=== PATIENT | male | born 1995 | race African-American/Black ===

== ENCOUNTER 2019-08-24 07:20 | Emergency (ER) | payer OTHER ==
[~2019-08-24] VITALS: Ht 185.4 cm; Wt 67.1 kg
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
[2019-08-24 07:38] VITALS: BP 123/80
--- NOTE | 2019-08-24 07:55 | NUR ---
Note jannet in EDM - 08/24/19 at 0816 by JHERMANGregoria ED Nurse Note: Pt taken to XR.
--- NOTE | 2019-08-24 07:55 | NUR ---
ED Nurse Note: Pt taken to XR.
[2019-08-24] MEDS ORDERED: Ketorolac 60mg Inj IM ONE (08:00)
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
[2019-08-24] MEDS ORDERED: IBUPROFEN600 M1 ORAL (09:12)
[2019-08-24] MEDS ORDERED: CYCLOBENZAPRINE10 MG ORAL (09:12)
[2019-08-24 10:00] VITALS: BP 128/76
--- NOTE | 2019-08-24 10:00 | NUR ---
ER DISCHARGE NOTE: Patient is cleared to be discharged per ERMD, pt is aox4, on room air, with stable vital signs. pt was given dc and prescription instructions, pt was able to verbalize understanding, pt id band removed. pt is able to ambulate with steady gait. pt took all belongings.
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
== END 2019-08-24 10:00 | disposition home or self-care (01) ==
LOC: EMR 07:50
DX: S13.4XXA Sprain of ligaments of cervical spine, initial encounter (principal); S39.012A Strain of muscle, fascia and tendon of lower back, initial encounter; V43.62XA Car passenger injured in collision with other type car in traffic accident, initial encounter; Y92.410 Unspecified street and highway as the place of occurrence of the external cause
CPT/HCPCS: 70450; 96372; 99284